=== PATIENT | male | born 1945 | race Caucasian/White ===

== ENCOUNTER 2016-11-01 09:33 | Emergency (ER) | payer MEDICARE ==
--- NOTE | 2016-11-01 10:06 | Emergency Department Record ---
History of Present Illness - General Chief complaint: Male Urogenital Problem Stated complaint: DARK URINE Time Seen by Provider: 11/01/16 09:56 Mode of Arrival: Ambulatory - History of Present Illness Initial comments: tea colored urine for 3 days. No trauma and hernia neg. No injuries to tip of penis. Onset/Timin -: Days(s) Radiation: None Severity: Mild Severity scale (1-10): 1 Reports: Denies other symptoms - Related Data Home Medications Medication Instructions Recorded Confirmed Last Taken Acetaminophen [Tylenol Arthritis] 650 mg PO QPM 11/01/16 11/01/16 1 Day Ago Cholecalciferol (Vitamin D3) 2,000 unit PO DAILY 11/01/16 11/01/16 1 Day Ago [Vitamin D3] Guaifenesin [Mucinex] 1,200 mg PO BID PRN 11/01/16 11/01/16 1 Day Ago L. Rhamnosus GG/Inulin [Culturelle 1 each PO DAILY 11/01/16 11/01/16 1 Day Ago [facility] Cap] Lisinopril/Hydrochlorothiazide 1 each PO DAILY 11/01/16 11/01/16 1 Day Ago [Lisinopril-Hctz 10-12.5 mg Tab] Lorazepam [Ativan] 0.5 mg PO TID PRN 11/01/16 11/01/16 1 Day Ago Multivit-Min/FA/Lycopene/Lut 1 each PO DAILY 11/01/16 11/01/16 1 Day Ago [Centrum Silver Tablet] Omeprazole 20 mg PO DAILY 11/01/16 11/01/16 1 Day Ago Vitamin B Complex/Folic Acid 2,000 mcg PO DAILY 11/01/16 11/01/16 1 Day Ago [B-Stress Capsules] Previous Rx's Medication Instructions Recorded Sulfamethoxazole/Trimethoprim 1 each PO BID #20 tablet 11/01/16 [Bactrim Ds Tablet] Allergies Allergy/AdvReac Type Severity Reaction Status Date / Time Penicillins Allergy HIVES Verified 11/01/16 09:49 Travel Screening - Travel/Exposure Within Last 30 Days Have you traveled within the last 30 days?: No - Travel/Exposure Within Last Year Have you traveled outside the [place] in the last year?: No - Additonal Travel Details Have you been exposed to anyone with a communicable illness?: No - Travel Symptoms Symptom Screening: None Review of Systems Reviewed: No additional complaints except as noted below Constitutional: Reports: As per HPI. Denies: Chills, Fever, Malaise, Night sweats, Weakness, Weight change Eyes: Reports: As per HPI. Denies: Eye discharge, Eye pain, Photophobia, Vision change ENT: Reports: As per HPI. Denies: Congestion, Dental pain, Ear pain, Epistaxis , Hearing loss, Throat pain Respiratory: Reports: As per HPI. Denies: Cough, Dyspnea, Hemoptysis, Stridor, Wheezes Cardiovascular: Reports: As per HPI. Denies: Arrhythmia, Chest pain, Dyspnea on exertion, Edema, Murmurs, Orthopnea, Palpitations, Paroxysmal nocturnal dyspnea, Rheumatic Fever, Syncope Endocrine: Reports: As per HPI. Denies: Fatigue, Heat or cold intolerance, Polydipsia, Polyuria Gastrointestinal: Reports: As per HPI. Denies: Abdominal pain, Constipation, Diarrhea, Hematemesis, Hematochezia, Melena, Nausea, Vomiting Genitourinary: Reports: As per HPI, Hematuria. Denies: Dysuria, Frequency, Incontinence, Retention, Testicular pain, Testicular mass, Urgency Musculoskeletal: Reports: As per HPI. Denies: Arthralgia, Back pain, Gout, Joint swelling, Myalgia, Neck pain Skin: Reports: As per HPI. Denies: Bruising, Change in color, Change in hair/ nails, Lesions, Pruritus, Rash Neurological: Reports: As per HPI. Denies: Abnormal gait, Confusion, Headache, Numbness, Paresthesias, Seizure, Tingling, Tremors, Vertigo, Weakness Psychiatric: Reports: As per HPI. Denies: Anxiety, Auditory hallucinations, Depression, Homicidal thoughts, Suicidal thoughts, Visual hallucinations Hematological/Lymphatic: Reports: As per HPI. Denies: Anemia, Blood Clots, Easy bleeding, Easy bruising, Swollen glands Past Medical History - SOCIAL HISTORY Smoking Status: Former smoker Alcohol Use: Rare Drug Use: None - RESPIRATORY Hx COPD: Yes Comment:: paralyzed right diaphragm - CARDIOVASCULAR Hx Cardio Disorders: No - NEURO Hx Neuro Disorders: No - GI Hx Reflux: Yes - Hx Genitourinary Disorders: No - ENDOCRINE Hx Endocrine Disorders: No - MUSCULOSKELETAL Hx Arthritis: Yes (hands) - PSYCH Hx Anxiety: Yes - HEMATOLOGY/ONCOLOGY Hx Hematology/Oncology Disorders: No Family Medical History Any Significant Family History?: Yes Physical Exam - General General Appearance: Alert, Oriented x3, Cooperative, No acute distress - Head Head exam: Normal inspection - Eye Eye exam: Normal appearance, PERRL Pupils: Normal accommodation - ENT ENT exam: Normal exam, Mucous membranes moist, Normal external ear exam, Normal orophraynx, TM's normal bilaterally Ear exam: Normal external inspection. negative: External canal tenderness Nasal Exam: Normal inspection. negative: Discharge, Sinus tenderness Mouth exam: Normal external inspection, Tongue normal Teeth exam: Normal inspection. negative: Dental caries Throat exam: Normal inspection. negative: Tonsillar erythema, Tonsillar exudate - Neck Neck exam: Normal inspection, Full ROM. negative: Tenderness - Respiratory Respiratory exam: Normal lung sounds bilaterally. negative: Respiratory distress - Cardiovascular Cardiovascular Exam: Regular rate, Normal rhythm, Normal heart sounds - GI/Abdominal GI/Abdominal exam: Soft, Normal bowel sounds. negative: Tenderness - Rectal Rectal exam: Deferred, Prostate enlargement, Other (brown stool). negative: Prostate tenderness, Tenderness - exam: Deferred - Extremities Extremities exam: Normal inspection, Full ROM, Normal capillary refill. negative: Tenderness - Back Back exam: Reports: Normal inspection, Full ROM. Denies: Muscle spasm, Rash noted, Tenderness - Neurological Neurological exam: Alert, Normal gait, Oriented X3, Reflexes normal - Psychiatric Psychiatric exam: Normal affect, Normal mood - Skin Skin exam: Dry, Intact, Normal color, Warm Course Vital Signs 11/01/16 09:38 Temperature 97.8 F Pulse Rate 86 Respiratory 16 Rate Blood Pressure 126/80 Pulse Ox 96 Medical Decision Making - Lab Data Result diagrams: 11/01/16 09:58 11/01/16 09:58 Disposition Clinical Impression: UTI (urinary tract infection), Hematuria Disposition: Home, Self-Care Condition: (1) Good Instructions: Urinary Tract Infection in Men (ED) Additional Instructions: FOLLOW UP WITH DR. Carroll in 4 days drink fluids Prescriptions: Sulfamethoxazole/Trimethoprim [Bactrim Ds Tablet] 1 each PO BID #20 tablet Forms: Patient Portal Access Time of Disposition: 10:59
[2016-11-01 10:08] LABS: URINE APPEARANCE CLOUDY; URINE BILIRUBIN SMALL (NEGATIVE); URINE BLOOD LARGE (NEGATIVE); URINE COLOR BROWN; URINE GLUCOSE (UA) NEGATIVE (NEGATIVE); URINE KETONE NEGATIVE (NEGATIVE); URINE LEUKOCYTE ESTERASE TRACE (NEGATIVE); URINE NITRITE NEGATIVE (NEGATIVE); URINE UROBILINOGEN 0.2 E.U./dL (0.20 - 1.00)
[2016-11-01 10:18] LABS: URINE BACTERIA NONE SEEN; URINE EPITHELIAL CELLS 0 - 2 (FEW)
[2016-11-01 10:40] LABS: BASO % 0.5 % (0-6); EOS % 3.1 % (0-6); GRAN % 63.1 % (47-80); HEMATOCRIT 41.8 % (42.0-52.0); HEMOGLOBIN 13.8 gm/dl (14.0-18.0); LYMPH % 22.4 % (16-45); MEAN CELL VOLUME 96.1 fl (81-97); MEAN CORPUSCULAR HEMOGLOBIN 31.7 pg (27-33); MEAN PLATELET VOLUME 9.9 fl (7.4-10.4); MONO % 10.9 % (0-9); PLATELET COUNT 225 K/uL (130-400); RED BLOOD COUNT 4.35 M/uL (4.40-5.70); WHITE BLOOD COUNT W/O DIFF 7.5 K/uL (4.2-12.2)
[2016-11-01 10:50] LABS: BLOOD UREA NITROGEN 18 mg/dL (9-20); CREATININE 0.9 mg/dL (0.66-1.25); EST GLOMERULAR FILTRATION RATE > 60 ml/min; GLUCOSE,RANDOM 88 mg/dL (70-110)
[2016-11-01 11:06] LABS: INR 0.96; PARTIAL THROMBOPLASTIN TIME 28.4 SECONDS (24.5-39.1); PROTHROMBIN TIME (PATIENT) 10.9 SECONDS (9.5-12.1)
== END 2016-11-01 11:11 | disposition home or self-care (01) ==
LOC: ER 09:33
DX: N39.0 Urinary tract infection, site not specified (principal); R31.0 Gross hematuria
CPT/HCPCS: 80048; 81001; 85025; 85610; 85730; 99283

== ENCOUNTER 2018-04-21 16:43 | Emergency (ER) | payer MEDICARE ==
[2018-04-21] MEDS ORDERED: DIPHENHYDRAMINE HCL 25 MG CAPSULE PO ONE (17:00)
[2018-04-21] MEDS ORDERED: METHYLPREDNISOLONE PF 125MG/VIAL IM ONE (17:00)
--- NOTE | 2018-04-21 17:07 | Emergency Department Record ---
History of Present Illness - General Chief complaint: Bite Insect/other Stated complaint: BEE STING Time Seen by Provider: 04/21/18 16:52 Source: Patient Mode of Arrival: Ambulatory Limitations: No limitations - History of Present Illness Initial comments: The patient is here due to being stung by a bee 5 hours ago between the eyes and then developing swelling under and around the eyes mildly. The affected area is also mildly pruritic but the patient denies any CP, SOB, CATE, voice changes or swallowing problems. The patient has no hx of bee sting allergies. MD complaint: Insect bite/sting, Rash Onset/Timin -: Hour(s) Improves with: None Worsens with: None Associated symptoms: Other Treatments Prior to Arrival: Benadryl - Related Data Previous Rx's Medication Instructions Recorded Prednisone [Prednisone 20Mg] 40 mg PO DAILY #8 tab 04/21/18 Allergies Allergy/AdvReac Type Severity Reaction Status Date / Time Penicillins Allergy HIVES Verified 04/21/18 16:53 Travel Screening - Travel/Exposure Within Last 30 Days Have you traveled within the last 30 days?: No - Travel/Exposure Within Last Year Have you traveled outside the [place] in the last year?: No - Additonal Travel Details Have you been exposed to anyone with a communicable illness?: No - Travel Symptoms Symptom Screening: None Review of Systems Constitutional: Denies: Chills, Fever Eyes: Denies: Eye discharge ENT: Denies: Congestion Respiratory: Denies: Cough, Dyspnea Cardiovascular: Denies: Arrhythmia, Chest pain Past Medical History - SOCIAL HISTORY Smoking Status: Former smoker Alcohol Use: None Drug Use: None - RESPIRATORY Hx Respiratory Disorders: Yes Hx COPD: Yes Comment:: paralyzed right diaphragm - CARDIOVASCULAR Hx Cardio Disorders: No - NEURO Hx Neuro Disorders: No - GI Hx GI Disorders: Yes Hx Reflux: Yes - Hx Genitourinary Disorders: Yes Hx Prostate Problems: Yes Hx Renal Disease: Yes (right kidney removal.) - ENDOCRINE Hx Endocrine Disorders: No - MUSCULOSKELETAL Hx Arthritis: Yes (hands) - PSYCH Hx Anxiety: Yes - HEMATOLOGY/ONCOLOGY Hx Hematology/Oncology Disorders: No Family Medical History Any Significant Family History?: No Physical Exam - General General Appearance: Alert, Oriented x3, Cooperative, No acute distress - Head Head exam: Atraumatic, Normocephalic, Normal inspection Image of Face/Head: 1 - Area of bee sting. 2 - Area of mild swelling. - Eye Eye exam: PERRL, EOMI, Periorbital swelling (Mildly due to the bee sting.). negative: Normal appearance, Conjunctival injection, Periorbital tenderness - ENT Throat exam: Normal inspection. negative: Tonsillar erythema, Tonsillar exudate - Neck Neck exam: Normal inspection, Full ROM. negative: Lymphadenopathy, Meningismus , Tenderness - Respiratory Respiratory exam: Normal lung sounds bilaterally. negative: Respiratory distress - Cardiovascular Cardiovascular Exam: Regular rate, Normal rhythm, Normal heart sounds - Neurological Neurological exam: Alert. negative: Motor sensory deficit Course Vital Signs 04/21/18 16:45 Temperature 98.5 F Pulse Rate 74 Respiratory 20 Rate Blood Pressure 140/91 Pulse Ox 95 - Reevaluation(s) Reevaluation #1: I did discuss the need to continue the Benadryl and Prednisone as directed and to use ice to the area when possible. He is to return to the ER for any worsening symptoms. 04/21/18 17:07 Disposition Disposition: Discharge Clinical Impression: Allergic reaction to bee sting Disposition: Home, Self-Care Condition: (2) Stable Instructions: Insect Bite or Sting (ED) Additional Instructions: Use ice to the area when possible. Take Benadryl 25 mg QID for 4 days along with the Prednisone. Return to the ER for any worsening swelling, pain, fever, trouble swallowing or any trouble breathing. Prescriptions: Prednisone [Prednisone 20Mg] 40 mg PO DAILY #8 tab Forms: Patient Portal Access Time of Disposition: 17:10 Quality - Quality Measures Quality Measures: N/A - Blood Pressure Screening View Details: Yes Does Patient Have Any of the Following: No Blood Pressure Classification: Hypertensive Reading Systolic Measurement: 140 Diastolic Measurement: 91 Screening for High Blood Pressure: < First Hypertensive BP, F/U Documented > [ [id number]] First Hypertensive Follow-up Interventions: Referral to alternative/primary care provider.
== END 2018-04-21 17:35 | disposition home or self-care (01) ==
LOC: ER 16:43
DX: T63.441A Toxic effect of venom of bees, accidental (unintentional), initial encounter (principal); H05.223 Edema of bilateral orbit; J44.9 Chronic obstructive pulmonary disease, unspecified; Z87.891 Personal history of nicotine dependence
CPT/HCPCS: 96372; 99282; 99283; J2930